=== PATIENT | female | born 1945 | race Caucasian/White ===

== ENCOUNTER 2021-04-28 07:35 | Day surgery (SDC) | payer OTHER, MEDICARE ==
[2021-04-25 16:06] VITALS: BMI 25.0
[2021-04-28] MEDS ORDERED: PROPOFOL 20 ML ONE ×2 (08:07)
[2021-04-28] MEDS ORDERED: GLYCOPYRROLATE 0.2 MG/1 ML VIAL ONE (09:21)
[2021-04-28 10:12] VITALS: BP 130/74; PULSE 58; TEMP 98.2
== END 2021-04-28 10:20 | disposition home or self-care (01) ==
LOC: FASU-ENDO 07:35
PROVIDERS: ATTEND Internal Medicine Gastroenterology
PROC: 0DJD8ZZ Inspection of Lower Intestinal Tract, Via Natural or Artificial Opening Endoscopic (ICD-10-PCS; principal; 2021-04-28 09:18)
DX: Z12.11 Encounter for screening for malignant neoplasm of colon (principal); Z83.71 Family history of colonic polyps; K57.30 Diverticulosis of large intestine without perforation or abscess without bleeding